=== PATIENT | female | born 1985 | race Caucasian/White ===

== ENCOUNTER 2016-05-05 13:32 | Emergency (ER) | payer SELFPAY ==
[~2016-05-05] VITALS: Ht 165.1 cm; Wt 49.9 kg
[2016-05-05 13:32] VITALS: BP_SYST 108
--- NOTE | 2016-05-05 13:33 | NUR ---
Patient triaged and placed in waiting room. VSS and patient appears in no acute distress at this time. Accompanied by SELF, awaiting available bed, and MD notified of need for MSE.
--- NOTE | 2016-05-05 14:40 | NUR ---
ASSUMED PT. CARE, PT. TO ER AAOx4 FOR COUGH AND ABDOMINAL PAIN, STATES THAT SHE HAS FLU SYMPTOMS FOR ABOUT A WEEK NOW, WITH PRODUCTIVE COUGH, PAIN 5/10, FEELS WEAKER TODAY, DENIES SOB, DENIES CHEST PAIN
--- NOTE | 2016-05-05 14:47 | NUR ---
ER at bedside examining patient.
--- NOTE | 2016-05-05 15:13 | NUR ---
PT. OUT TO RADIOLOGY VIA WHEELCHAIR
[2016-05-05 15:55] VITALS: BP_SYST 120
--- NOTE | 2016-05-05 15:55 | NUR ---
Patient given written and verbal discharge instructions and verbalizes understanding. ER MD dR. Clancy discussed with patient the results and treatment provided.Patient in stable condition. ID arm band removed. Rx of ZITHROMAZ, PROMETH given. Patient educated on pain management and to follow up with PMD. Pain Scale 0/10 Opportunity for questions provided and answered.
--- NOTE | 2016-05-05 16:27 | NUR ---
Pharmacy called, sacha is on back order, request to change RX to [facility]. Dr. Moralez agreed
== END 2016-05-05 15:55 | disposition home or self-care (01) ==
LOC: SED 13:32
DX: J18.9 Pneumonia, unspecified organism (principal)
CPT/HCPCS: 71010; 99283